=== PATIENT | female | born 1985 | race Caucasian/White ===

== ENCOUNTER 2018-02-03 02:09 | Emergency (ER) | payer MEDICARE, MEDICAID ==
[~2018-02-03] VITALS: Ht 154.9 cm; Wt 95.3 kg
[2018-02-03 02:10] VITALS: BP 132/82
== END 2018-02-03 04:06 ==
LOC: ER 02:09
DX: G89.29 Other chronic pain (principal); M54.9 Dorsalgia, unspecified; F17.210 Nicotine dependence, cigarettes, uncomplicated; F12.10 Cannabis abuse, uncomplicated; F15.10 Other stimulant abuse, uncomplicated; Z59.0 Homelessness